=== PATIENT | male | born 1940 | race Caucasian/White ===

== ENCOUNTER 2024-01-03 09:56 | Day surgery (SDC) | payer MEDICARE, BC ==
[~2024-01-03] VITALS: Ht 175.3 cm; Wt 82.6 kg
[~2024-01-03 09:56] MED LIST: Lactated Ringer's 1,000 ML IV ONE
[2024-01-03] MEDS ORDERED: NS 50 ML IV ONE (10:16)
[2024-01-03] MEDS ORDERED: CeFAZolin Sodium 2,000 MG VIAL ONE (10:16)
[2024-01-03] MEDS ORDERED: Lactated Ringer's 1,000 ML IV ONE (10:45)
--- NOTE | 2024-01-03 10:49 | NUR ---
01/03/24 1049 Elodia Coleman 9 ML LIDOCAINE 1% WITH EPI 1:100,000 WITH SODIUM BICARBONATE INJECTION TO R HAND/WRIST BY DR BURGOS AT 1046
[2024-01-03] MEDS ORDERED: KLOR-CON 1010 ME9 PO (10:50)
[2024-01-03] MEDS ORDERED: FAMC500 PO (10:55)
[2024-01-03] MEDS ORDERED: Prinivil10 MG (10:55)
[2024-01-03] MEDS ORDERED: ANORO ELLIPTA1 EAC1 (10:57)
[2024-01-03] MEDS ORDERED: MELO7.5 PO (10:57)
[2024-01-03] MEDS ORDERED: FURO20 PO (10:58)
[2024-01-03] MEDS ORDERED: METFORMIN HCL500 M3 PO (10:58)
[2024-01-03] MEDS ORDERED: CENTRUM SILVER1 EAC2 (10:59)
[2024-01-03] MEDS ORDERED: EUTHYROX50 MC1 PO (10:59)
[2024-01-03] MEDS ORDERED: CALCIUM (11:00)
[2024-01-03] MEDS ORDERED: DERMACINRX FOL1 EAC2 (11:01)
[2024-01-03] MEDS ORDERED: IRON (11:01)
[2024-01-03] MEDS ORDERED: Aspir 8181 MG PO (11:01)
[2024-01-03] MEDS ORDERED: ATORVASTATIN CA20 MG PO (11:02)
[2024-01-03] MEDS ORDERED: Midazolam HCl 1MG / ML 2ML Vial ONE (11:09)
[2024-01-03] MEDS ORDERED: Ondansetron HCl 2 MG / ML 2ML Vial ONE (11:09)
[2024-01-03] MEDS ORDERED: Dexamethasone Sod Phos 10 MG/ML 1ML VIAL ONE (11:09)
[2024-01-03] MEDS ORDERED: propofoL 20 ML IV ONE (11:09)
[2024-01-03 12:05] VITALS: BP 113/81
== END 2024-01-03 12:25 | disposition home or self-care (01) ==
LOC: ORSCSDS 09:56
PROVIDERS: Orthopaedic Surgery
PROC: 01N54ZZ Release Median Nerve, Percutaneous Endoscopic Approach (ICD-10-PCS; principal; 2024-01-03 11:15)
DX: G56.03 Carpal tunnel syndrome, bilateral upper limbs (principal); M65.331 Trigger finger, right middle finger; M65.332 Trigger finger, left middle finger; I10 Essential (primary) hypertension; J44.9 Chronic obstructive pulmonary disease, unspecified; E11.9 Type 2 diabetes mellitus without complications; Z87.891 Personal history of nicotine dependence; Z79.82 Long term (current) use of aspirin; Z79.84 Long term (current) use of oral hypoglycemic drugs; Z79.899 Other long term (current) drug therapy
CPT/HCPCS: 82947; J0690; J1100; J2250; J2405; J2704; J7120